=== PATIENT | female | born 1970 | race Caucasian/White ===

== ENCOUNTER 2025-04-16 14:02 | Outpatient (REF) | payer MEDICAID, SELFPAY ==
[2025-04-16 17:28] LABS: HCT 46.1 % (36.0-46.0); HGB 15.5 g/dL (11.2-15.7); MCH 30.7 pg (27.0-33.0); MCHC 33.6 % (32.0-36.0); MCV 91 fL (80-95); MPV 12.3 fL (8.0-11.0); Platelet Count 274 10^3/uL (130-400); RBC 5.05 10^6/uL (3.93-5.22); RDW 11.9 % (11.7-14.6); RDW-SD 39.7 fL; WBC 8.92 10^3/uL (4.4-10.8)
[2025-04-16 17:53] LABS: ALT 49 U/L (14-59); AST 22 U/L (15-37); Albumin 4.4 g/dL (3.4-5.0); Alkaline Phosphatase 95 U/L (46-116); Anion Gap 10.1 mmol/L (3-11); BUN 12 mg/dL (7-18); Bilirubin, Total 0.4 mg/dL (0.2-1.0); CO2 28.9 mmol/L (21.0-32.0); Calcium 9.6 mg/dL (8.5-10.1); Calculated LDL 149 mg/dL (<100); Chloride 100 mmol/L (98-107); Cholesterol 276 mg/dL (<200); Estimated GFR 87.50 (mL/min/1.73m2); Glucose 92 mg/dL (74-106); HDL Cholesterol 47 mg/dL (>or=50); Potassium 5.1 mmol/L (3.5-5.1); Sodium 139 mmol/L (136-145); TSH (W/Ref FT4) 2.03 uIU/mL (0.36-3.74); Total Protein 7.9 g/dL (6.4-8.2); Triglyceride 400 mg/dL (<150)
[2025-04-16 17:57] LABS: Hemoglobin A1C 5.7 % (<5.7)
[2025-04-18 12:56] LABS: HIV-1/2 Ag & Ab Screen Negative (Negative)
[2025-04-19 10:37] LABS: Hepatitis C Ab w Rflx HCV PCR Negative (Negative)
== END 2025-04-16 14:03 | disposition home or self-care (01) ==
LOC: NCHCN 14:02
PROVIDERS: Visit Provider Nurse Practitioner Family
DX: Z00.00 Encounter for general adult medical examination without abnormal findings (principal)
CPT/HCPCS: 80053; 80061; 85027; 86803; 87389; 83036; 84443

== ENCOUNTER 2025-05-06 09:53 | Outpatient (REF) | payer MEDICAID, SELFPAY ==
--- NOTE | 2025-05-06 09:00 | PAPFT_PTH ---
PATIENT: Nandini Gutierrez LOC: [facility] U#:[id number] AGE/SX: 55/F ROOM: RE05/06/[address]: Adeline Lentz DO : 1970 BED: DIS: 05/06/2025 SPEC #: [id number] RECD: 05/06/25 12:50 STATUS: ZACH REQ #: [id number] YISSEL: 05/06/25 09:[address]: Adeline Lentz DEPT: [facility] Cytology RECD BY: Karla Carvalho ENTERED: 05/06/25 12:50 SP TYPE: PAPFT OTHR DR: Bhavana Clark Tissues: 1 - CX/ENDOCX FOR PAP SMEARS Procedures: PAP THIN PREP/[facility] Screening HPV DNA PROBE Comments: [id number] (HPV 16 & 18/45)
== END 2025-05-06 09:54 | disposition home or self-care (01) ==
LOC: LBN 09:53
PROVIDERS: PCP Nurse Practitioner Family; Visit Provider Obstetrics & Gynecology
DX: Z12.4 Encounter for screening for malignant neoplasm of cervix (principal)
CPT/HCPCS: 88142; 87624

== ENCOUNTER → 2025-05-20 02:21 | Outpatient (CLI) | payer MEDICAID, SELFPAY ==
--- NOTE | 2025-05-20 13:45 | DI.US_ITS ---
Exam(s) US PELVIS TRANSVAGINAL EXAM: US PELVIS TRANSVAGINAL CLINICAL HISTORY: locate IUD,IUD COMPLICATION,T83.9XXA,Z01.419 TECHNIQUE: Transabdominal and transvaginal imaging was performed using standard protocol. COMPARISON: No exams were available for comparison FINDINGS: UTERUS: Anteverted. 6.1 x 2.7 x 3.5 cm Endometrium: 4 mm . There is some fluid within the endometrial cavity. An IUD is in place which appears in satisfactory position. Myometrium: Posterior myometrial fibroid measuring 1.3 cm. Cervix: Unremarkable. OVARIES: Not visualized CUL-DE-SAC: Free fluid: None. IMPRESSION: IUD in place within the endometrium. Some fluid within the endometrial canal but no evidence of endometrial thickening. Small posterior fibroid. The ovaries were not identified. DATA REPOSITORY:
== END ==
LOC: DI 02:21
PROVIDERS: PCP Nurse Practitioner Family; Visit Provider Obstetrics & Gynecology
DX: T83.9XXA Unspecified complication of genitourinary prosthetic device, implant and graft, initial encounter (principal); Z01.419 Encounter for gynecological examination (general) (routine) without abnormal findings
CPT/HCPCS: 76830; 76856

== ENCOUNTER → 2025-05-20 02:23 | Outpatient (CLI) | payer MEDICAID, SELFPAY ==
--- NOTE | 2025-05-20 13:45 | DI.RAD_ITS ---
Exam(s) XR CERVICAL SPINE COMP 4-5V EXAM: XR CERVICAL SPINE COMP 4-5V CLINICAL HISTORY: CERVICALGIA M54.2. TECHNIQUE: 2D digital imaging was performed. Five views were performed. COMPARISON: No exams were available for comparison FINDINGS: BONES: No fracture or destructive lesion. Vertebral bodies are unremarkable. There are facet degenerative changes. There is no significant neural foraminal narrowing. DISKS: There is mild narrowing of the C6-7 disc space. There are endplate osteophytes projecting anteriorly. The remaining intervertebral disc spaces are maintained. There are endplate osteophytes projecting anteriorly at C5-6. ALIGNMENT: There is some degenerate straightening of the normal cervical lordosis. The odontoid and atlantoaxial articulations are normal. SOFT TISSUE: Normal. The lung apices are clear. IMPRESSION: Degenerative changes, greatest at C6-7. DATA REPOSITORY: RADIATION DOSE DELIVERED:
== END ==
LOC: DI 02:23
PROVIDERS: PCP Nurse Practitioner Family; Visit Provider Nurse Practitioner Family
DX: M50.323 Other cervical disc degeneration at C6-C7 level (principal)
CPT/HCPCS: 72050

== ENCOUNTER → 2025-06-04 01:48 | Outpatient (CLI) | payer MEDICAID, SELFPAY ==
--- NOTE | 2025-06-04 15:44 | DI.MAMMO_ITS ---
Exam(s) MAMMO SCREENING EXAM: MAMMO SCREENING CLINICAL HISTORY: screening TECHNIQUE: Mammograms were interpreted according to the usual protocol including computer analysis with CAD system, tomosynthesis and C-view imaging. COMPARISON: No exams were available for comparison. Outside mammograms performed in [place] have been requested but have not yet been received. FINDINGS: The breasts are composed of scattered fibroglandular densities, Breast Density category B. No suspicious masses or suspicious microcalcifications are seen. There are 2 intramammary lymph node is noted in the left breast. No skin thickening or abnormal axillary lymph nodes are seen. IMPRESSION: BI-RADS Category 1, Negative mammogram Yearly screening mammography is recommended. Breast Density - Category B - There are scattered areas of fibroglandular density. Breast density Category C or D implies that the patient has dense breast tissue. Dense breast tissue can make it harder to find cancer on a mammogram. Dense breast tissue is also associated with an increased risk of breast cancer. This information about the result of the mammogram report was provided to the patient to raise their awareness. Use this report when you speak with the patient about their risks for breast cancer, which includes their family history. At that time, you may recommend additional screening tests (Ultrasound or MRI) as these tests may add significant information. A negative radiographic report should not delay biopsy if a dominant or clinically suspicious mass is present. Up to ten percent of cancers are not identified on mammography. A negative report may reinforce clinical impression. Adenosis and dense breasts may obscure an underlying neoplasm. False positive reports average 6 to 10%. Patient will receive a letter notifying them of these results.
== END ==
LOC: DI 01:48
PROVIDERS: PCP Nurse Practitioner Family; Visit Provider Obstetrics & Gynecology
DX: Z12.31 Encounter for screening mammogram for malignant neoplasm of breast (principal)
CPT/HCPCS: 77063; 77067

== ENCOUNTER 2025-06-14 01:22 | Outpatient (CLI) | payer MEDICAID, SELFPAY ==
[2025-06-14 16:51] LABS: Abs Immature Grans 0.03 10^3/uL (0.0-0.06); HCT 41.8 % (36.0-46.0); HGB 13.7 g/dL (11.2-15.7); Immature Grans % 0.4 %; MCH 29.6 pg (27.0-33.0); MCHC 32.8 % (32.0-36.0); MCV 90 fL (80-95); MPV 10.7 fL (8.0-11.0); Platelet Count 217 10^3/uL (130-400); RBC 4.63 10^6/uL (3.93-5.22); RDW 12.3 % (11.7-14.6); RDW-SD 40.6 fL; WBC 8.25 10^3/uL (4.4-10.8)
== END 2025-06-14 01:23 | disposition home or self-care (01) ==
LOC: LBO 01:22
PROVIDERS: PCP Nurse Practitioner Family; Visit Provider Obstetrics & Gynecology
DX: Z01.818 Encounter for other preprocedural examination (principal)
CPT/HCPCS: 36415; 86850; 86900; 86901; 85025

== ENCOUNTER 2025-06-16 06:03 | Day surgery (SDC) | payer MEDICAID, SELFPAY ==
[2025-06-16 06:20] VITALS: BP 138/85; PULSE 69; RESP 69; TEMP 36.5; O2SAT 97
[2025-06-16] MEDS: Lactated Ringers 1,000 ML 125 ML IV (07:04)
--- NOTE | 2025-06-16 07:13 | W.ANESPRE ---
General Info Date of Service Date Performed: 06/16/25 Height: 5 ft 4 in Weight: 94.8 kg Body Mass Index (BMI): 35.9 Surgical Procedure: Operation Date: 06/16/25 07:40 Proposed Procedure Side Surgeon p Hysteroscopy, Myosure Adeline Lentz DO s Removal of IUD Adeline Lentz DO Pre-Op Diagnosis Post-Op Diagnosis IUD complication IUD complication Meds Allergies and Home Medications Allergies Allergy/AdvReac Type Severity Reaction Status Date / Time No Known Allergies Allergy Verified 06/16/25 06:27 Home Medication ?Medication ?Instructions ?Recorded levonorgestrel (Mirena) 1 device intrauterine ONCE 04/27/25 paroxetine HCl 20 mg tablet 50 mg PO DAILY 04/27/25 omeprazole 20 mg capsule,delayed 20 mg PO DAILY 05/20/25 release pregabalin 75 mg capsule (Lyrica) 150 mg PO BID 05/20/25 promethazine 25 mg tablet 25 mg PO Q6H PRN 05/20/25 Current Visit Medications: Current Medications Generic Name Dose Route Start Last Admin Trade Name Harpreetq PRN Reason Stop Dose Admin Ringer's Solution 1,000 mls @ 125 mls/hr 06/16/25 06:00 06/16/25 07:04 IV 06/16/25 23:59 125 mls/hr INFUSION JANEE Administration Sodium Chloride 0 ml 06/16/25 06:00 Normal Saline Flush 10 Ml Syr IV 06/16/25 23:59 PRN PRN Sodium Chloride 0 ml 06/16/25 06:00 Normal Saline 10 Ml Vial IJ 06/16/25 23:59 DIRECTED PRN Sterile Water 0 ml 06/16/25 06:00 Water,Injection,Sterile 10 Ml Vial IJ 06/16/25 23:59 DIRECTED PRN PFSH Active Problems Active Problems: Problem Status Onset Code Well woman exam with routine gynecological exam Acute Z01.419 IUD complication Acute T83.9XXA Major depressive disorder Chronic F32.9 Neuropathy Acute G62.9 IBS (irritable bowel syndrome) Chronic K58.9 Fibromyalgia Acute M79.7 Carpal tunnel syndrome Acute G56.00 Essential (primary) hypertension Acute I10 PTSD (post-traumatic stress disorder) Acute F43.10 Generalized anxiety disorder Acute F41.1 Insomnia Acute G47.00 Hyperlipidemia Acute E78.5 Surgical History Surgical History H/O sinus surgery History of back surgery Tobacco Smoking/Tobacco Use Status: Current every day Tobacco Type: cigarettes Smoking cigarettes per day: 10 and e-cigarettes Alcohol Alcohol Intake: never Substance Use Substance use type: marijuana Details: vapes THC daily Vital Signs and Lab Results Vital Signs Most Recent Vital Signs in EMR: Most Recent Vital Signs Temp Pulse Resp BP Pulse Ox 36.5 C 69 69 H 138/85 97 06/16/25 06:20 06/16/25 06:20 06/16/25 06:20 06/16/25 06:20 06/16/25 06:20 Lab Results Blood Type / Crossmatch: Antibody Screen NEGATIVE 06/14/25 Complete Blood Count: WBC, (4.4-10.8) 8.25 10^3/uL 06/14/25, 16:40 RBC, (3.93-5.22) 4.63 10^6/uL 06/14/25, 16:40 Hgb, (11.2-15.7) 13.7 g/dL 06/14/25, 16:40 Hct, (36.0-46.0) 41.8 % 06/14/25, 16:40 Plt Count, (130-400) 217 10^3/uL 06/14/25, 16:40 Anesthesia Assessment and Plan Anesthesia History Personal History: No History of Anesthesia Complications Family History: No Family History of Anesthesia Complications Exercise Tolerance Exercise Tolerance: Metabolic Equivalents>4 Pertinent Negatives Pertinent Negatives: No Symptoms of GERD, No Major Cardiovascular Symptoms or Complaints, No Major Pulmonary Symptoms or Complaints and No History of CVA/TIA Cardiac & Pulmonary Exam Cardiac Exam: Normal S1/S2 Heart Sounds Pulmonary Exam: Clear Bilateral Breath Sounds Implantable Cardiac Device Does patient have a Pacemaker or an ICD?: No Airway Exam Known Difficult Airway: No Mallampati Class: 2 Mouth Opening: Normal (> 3cm) Thyromental Distance: Greater than 3 cm Neck Range of Motion: Full ROM Neck Circumference: Normal Teeth Condition: Normal Dentition ASA Classification ASA Score: ASA 2 Emergency Case?: No NPO Status NPO Status: NPO Clears >2 hours, Solids >8 hours Anesthesia Plan Resuscitation Status: Full Code Anesthesia Technique: General Anesthesia Airway Planned: Natural Airway Monitors Used: Standard Monitors
[2025-06-16 07:20] VITALS: BMI 35.9
[2025-06-16 07:47] VITALS: BP 113/67; PULSE 63; RESP 17; TEMP 36.2; O2SAT 95
--- NOTE | 2025-06-16 07:50 | ROE_ITS ---
Operative Note Operative Note PRE-OP DIAGNOSIS: Retained IUD POST-OP DIAGNOSIS: same PROCEDURE: Removal of intrauterine device under sedation SURGEON: Adeline Lentz ANESTHESIA TYPE: General:No Airway Refer to Anesthesia Record ESTIMATED BLOOD LOSS: 5 PATHOLOGY: none sent COMPLICATIONS: None Patient was transported to: same day Patient's condition: stable Indications: IUD string not visualized Findings: Normal-appearing cervix. Uterus midline and mobile. IUD strings in the endocervical canal, removal of IUD in toto Procedure Description: After full informed consent was obtained, patient was taken the operating suite with an IV running. She was placed in the modified dorsolithotomy position in [facility] stirrups and prepped and draped in the usual sterile fashion. No antibiotic prophylaxis was needed. She had DVT prophylaxis with pneumatic compression stockings. Speculum was inserted into the vaginal vault after exam under anesthesia revealed a uterus that was midline and mobile. The cervix was identified and cleansed with Betadine. A ring forcep was used to tease the IUD string into visualization and with gentle downward traction, intrauterine device removed in toto without difficulty. The speculum was then removed and the patient was returned to the dorsal supine position. She awoke from anesthesia without difficulty. EBL: 5 mL Fluids: Crystalloid per anesthesia Complications: None apparent Findings: Removal of retained IUD. Uterus midline and mobile without evidence of adnexal masses Pathology: None sent Date of Procedure: 06/16/25
[2025-06-16 08:20] VITALS: BP 123/88; PULSE 61; RESP 18; TEMP 36.5; O2SAT 97
--- NOTE | 2025-06-16 08:23 | W.ANESPOSTOP ---
Postoperative Evaluation Date, Time and Location Date Performed: 06/16/25 Time Performed: 08:24 Patient Location: Day Surgery Unit Vital Signs Most Recent Imported Vital Signs: Most Recent Vital Signs Temp Pulse Resp BP Pulse Ox 36.2 C L 63 17 113/67 95 06/16/25 07:47 06/16/25 07:47 06/16/25 07:47 06/16/25 07:47 06/16/25 07:47 Pain Score Most Recent Pain Score: Most Recent Pain Score Pain Level 0 06/16/25 07:47 Assessment Mental Status: Awake (Alert & Oriented to Patient Baseline) Airway and Respiratory Function: Patent airway with normal (patient baseline) respiratory exam Cardiovascular Function: Hemodynamically Stable Hydration Status: Adequately Hydrated Nausea & Vomiting: No Nausea or Vomiting Pain: Pt. Denies Any Pain Peripheral Nerve Block: Patient did not receive a nerve block
== END 2025-06-16 08:44 | disposition home or self-care (01) ==
PROVIDERS: PCP Nurse Practitioner Family; Visit Provider Obstetrics & Gynecology
PROC: (CPT 58301; 2025-06-16 07:30)
DX: T83.32XA Displacement of intrauterine contraceptive device, initial encounter (principal); I10 Essential (primary) hypertension; F41.1 Generalized anxiety disorder; E78.5 Hyperlipidemia, unspecified
CPT/HCPCS: 58301; J2704; J3010

== ENCOUNTER 2025-06-25 10:15 | Outpatient (CLI) | payer MEDICAID, SELFPAY ==
--- NOTE | 2025-06-25 09:00 | DI.RAD_ITS ---
Exam(s) XR HIP PELVIS ADULT BL EXAM: XR HIP PELVIS ADULT BL CLINICAL HISTORY: bilateral hip pain. TECHNIQUE: 2D digital imaging was performed of the pelvis and bilateral hips. Three images were obtained. AP pelvis and lateral views of both hips were obtained. COMPARISON: No exams were available for comparison FINDINGS: BONES: No acute fracture is present. No bony destructive lesion is seen. JOINTS: No dislocation present. There is asymmetric joint space narrowing of the hips bilaterally which can be seen with osteoarthritis. The hips are otherwise well maintained. SOFT TISSUE: Normal. IMPRESSION: Asymmetric joint space narrowing of the hips bilaterally which can be seen with osteoarthritis. DATA REPOSITORY: RADIATION DOSE DELIVERED:
== END 2025-06-25 10:16 | disposition home or self-care (01) ==
LOC: DIORS 06-28 09:20
PROVIDERS: PCP Nurse Practitioner Family; Visit Provider Physician Assistant
DX: M25.551 Pain in right hip (principal); M25.552 Pain in left hip; M16.0 Bilateral primary osteoarthritis of hip
CPT/HCPCS: 73521